=== PATIENT | female | born 1965 | race Two or more races ===

== ENCOUNTER 2018-05-23 16:39 | Outpatient (CLI) | payer OTHER ==
[~2018-05-23 16:39] MED LIST: [UNRECOGNIZED DRUG - OTHER]
== END 2018-05-23 16:48 | disposition home or self-care (01) ==
LOC: RAD 16:39
DX: R10.9 Unspecified abdominal pain (principal)

== ENCOUNTER 2019-09-13 09:35 | Outpatient (CLI) | payer OTHER | END 2019-09-13 09:59 | disposition home or self-care (01) | LOC: RAD 09:35 | PROVIDERS: ATTEND General Practice | DX: M25.551 Pain in right hip (principal) ==

== ENCOUNTER 2019-09-23 13:58 | Outpatient (CLI) | payer OTHER | END 2019-09-23 14:11 | disposition home or self-care (01) | LOC: NUCLEAR 13:58 | PROVIDERS: ATTEND General Practice | DX: M81.0 Age-related osteoporosis without current pathological fracture (principal) ==